=== PATIENT | female | born 1990 | race Caucasian/White ===

== ENCOUNTER 2025-06-25 20:18 | Inpatient (IN) | payer OTHER ==
[~2025-06-25 20:18] MED LIST: Iopamidol-370 76% 500 ML MDV (1 ML CHARGE) ONE
[2025-06-25 20:53] LABS: Bacteria/HPF None Seen HPF (None Seen); CAUTI Indications for Culture Pelvic or flank pain; Glucose, Urine (Dipstick) Normal (Negative); Leukocyte Negative Leu/uL (Negative); Protein, Urine (Dipstick) Negative (Neg-Trace); RBC/HPF 0-3 HPF (0-3); Specific Gravity, Urine 1.005 (1.002-1.036); WBC/HPF 0-3 HPF (0-3)
[2025-06-25 20:55] LABS: Urine Culture Reflex No No
[2025-06-25] MEDS ORDERED: Ondansetron PF 4 MG/2 ML Vial ONE ×2 (21:02→23:14)
[2025-06-25 21:28] LABS: #Basophils 0.03 10x3/uL (0.0-0.2); #Eosinophils 0.14 10x3/uL (0.0-0.7); #Monocytes 0.57 10x3/uL (0.11-0.59); #Neutrophils 5.10 10x3/uL (1.40-6.50); %Basophils 0.4 % (0.0-1.0); %Eosinophils 1.9 % (0.0-10.0); %Lymphocytes 20.0 % (21.0-51.0); %Monocytes 7.8 % (0.0-10.0); %Neutrophils 69.5 % (42.0-75.0); Hematocrit 38.1 % (36.0-47.0); Hemoglobin 12.6 g/dL (12.0-16.0); Mean Corpuscular Hemoglobin 30.7 pg (27.0-31.0); Mean Corpuscular Volume 92.7 fL (78.0-98.0); Platelet Count 277 10x3/uL (130-400); Red Blood Cell (RBC) Count 4.11 mill/uL (4.20-5.40); White Blood Cell (WBC) Count 7.34 10x3/uL (4.8-10.8)
[2025-06-25 21:37] LABS: BHCG - Serum Negative (NEGATIVE); Pregs Control Background? CLEAR/WHITE (CLR/WHITE); Pregs Control Bar Appear? YES (CONTROL BAR)
[2025-06-25 21:40] LABS: ALT (SGPT) 65 U/L (Less than 34); AST (SGOT) 122 U/L (11-34); Albumin 4.5 g/dL (3.1-4.5); Alkaline Phosphatase 147 U/L (40-110); Anion Gap 11 mmol/L (10-20); BUN (Urea Nitrogen) 8 mg/dL (7.0-18.7); Bilirubin, Total 0.7 mg/dL (0.3-1.2); Calc. Creatinine Clearance 0 mL/min (70-130); Calcium 9.6 mg/dL (7.8-10.44); Carbon Dioxide 23 mmol/L (22-29); Chloride 107 mmol/L (98-107); Globulin 3.1 g/dL (2.4-3.5); Glucose 99 mg/dL (70-105); Lipase 19 U/L (8-78); Potassium 4.0 mmol/L (3.5-5.1); Sodium 137 mmol/L (136-145)
[2025-06-26] MEDS ORDERED: hydrALAZINE 20 MG/ML VIAL SLOW IVP PRN (00:33)
[2025-06-26 01:54] VITALS: BMI 30.2
[2025-06-26] MEDS: Ondansetron PF 4 MG/2 ML Vial IVP PRN (05:33)
[2025-06-26 07:10] LABS: #Basophils 0.03 10x3/uL (0.0-0.2); #Eosinophils 0.14 10x3/uL (0.0-0.7); #Monocytes 0.49 10x3/uL (0.11-0.59); #Neutrophils 2.67 10x3/uL (1.40-6.50); %Basophils 0.6 % (0.0-1.0); %Eosinophils 3.0 % (0.0-10.0); %Lymphocytes 28.8 % (21.0-51.0); %Monocytes 10.4 % (0.0-10.0); %Neutrophils 57.0 % (42.0-75.0); Hematocrit 33.8 % (36.0-47.0); Hemoglobin 11.2 g/dL (12.0-16.0); Mean Corpuscular Hemoglobin 30.9 pg (27.0-31.0); Mean Corpuscular Volume 93.4 fL (78.0-98.0); Platelet Count 212 10x3/uL (130-400); Red Blood Cell (RBC) Count 3.62 mill/uL (4.20-5.40); White Blood Cell (WBC) Count 4.69 10x3/uL (4.8-10.8)
[2025-06-26 07:41] LABS: ALT (SGPT) 90 U/L (Less than 34); AST (SGOT) 96 U/L (11-34); Albumin 3.8 g/dL (3.1-4.5); Alkaline Phosphatase 122 U/L (40-110); Anion Gap 9 mmol/L (10-20); BUN (Urea Nitrogen) 6 mg/dL (7.0-18.7); Bilirubin, Total 1.0 mg/dL (0.3-1.2); Calc. Creatinine Clearance 117 mL/min (70-130); Calcium 8.8 mg/dL (7.8-10.44); Carbon Dioxide 24 mmol/L (22-29); Chloride 109 mmol/L (98-107); Globulin 2.6 g/dL (2.4-3.5); Glucose 92 mg/dL (70-105); Potassium 4.0 mmol/L (3.5-5.1); Sodium 138 mmol/L (136-145)
[2025-06-26] MEDS: FLU (Fluarix Triv) 25-26 (6MOS UP)/PF 45 MCG/0.5 ML Syringe IM ONE (09:13)
[2025-06-26] MEDS ORDERED: PROPOFOL 20 ML ONE (09:25)
[2025-06-26] MEDS ORDERED: fentaNYL PF 100 MCG/2 ML SYRINGE ONE ×3 (09:25→11:15)
[2025-06-26] MEDS ORDERED: Lidocaine 1% PF 5 ML VIAL ONE (09:27)
[2025-06-26] MEDS ORDERED: Rocuronium Bromide 10 MG/ML (10ML VIAL) ONE (09:27)
[2025-06-26] MEDS ORDERED: Ondansetron PF 4 MG/2 ML Vial ONE ×2 (09:27→11:18)
[2025-06-26] MEDS ORDERED: Bupivacaine 0.25% HCL 30 ML VIAL ONE (09:42)
[2025-06-26] MEDS ORDERED: SUCCINYLCHOLINE/SOD CL,ISO/PF 200 MG/10 ML SYRINGE FS ONE (09:58)
[2025-06-26] MEDS ORDERED: HYDROmorphone 0.5 MG/0.5 ML SYR SLOW IVP PRN (10:22)
[2025-06-26] MEDS ORDERED: SUGAMMADEX SODIUM 200 MG/2 ML VIAL ONE (10:34)
[2025-06-26] MEDS ORDERED: HYDROmorphone 0.5 MG/0.5 ML SYRINGE ONE (11:27)
[2025-06-26 14:30] VITALS: BMI 30.2
[2025-06-26] MEDS: Ketorolac Tromethamine 30 MG (1 mL) VIAL IVP PRN (17:30)
[2025-06-26] MEDS: Acetaminophen 325 MG TAB PO PRN (20:09)
[2025-06-27 06:39] LABS: #Basophils 0.03 10x3/uL (0.0-0.2); #Eosinophils 0.32 10x3/uL (0.0-0.7); #Monocytes 0.62 10x3/uL (0.11-0.59); #Neutrophils 6.49 10x3/uL (1.40-6.50); %Basophils 0.3 % (0.0-1.0); %Eosinophils 3.7 % (0.0-10.0); %Lymphocytes 13.0 % (21.0-51.0); %Monocytes 7.2 % (0.0-10.0); %Neutrophils 75.7 % (42.0-75.0); Hematocrit 38.3 % (36.0-47.0); Hemoglobin 12.7 g/dL (12.0-16.0); Mean Corpuscular Hemoglobin 31.1 pg (27.0-31.0); Mean Corpuscular Volume 93.9 fL (78.0-98.0); Platelet Count 271 10x3/uL (130-400); Red Blood Cell (RBC) Count 4.08 mill/uL (4.20-5.40); White Blood Cell (WBC) Count 8.59 10x3/uL (4.8-10.8)
[2025-06-27 07:00] LABS: ALT (SGPT) 177 U/L (Less than 34); AST (SGOT) 150 U/L (11-34); Albumin 4.3 g/dL (3.1-4.5); Alkaline Phosphatase 147 U/L (40-110); Anion Gap 15 mmol/L (10-20); BUN (Urea Nitrogen) 6 mg/dL (7.0-18.7); Bilirubin, Total 1.0 mg/dL (0.3-1.2); Calc. Creatinine Clearance 140 mL/min (70-130); Calcium 9.4 mg/dL (7.8-10.44); Carbon Dioxide 24 mmol/L (22-29); Chloride 104 mmol/L (98-107); Globulin 3.3 g/dL (2.4-3.5); Glucose 93 mg/dL (70-105); Potassium 3.4 mmol/L (3.5-5.1); Sodium 140 mmol/L (136-145)
[2025-06-27 12:10] VITALS: BP 118/79; TEMP 97.3
== END 2025-06-27 14:20 | disposition home or self-care (01) | DRG 419 ==
LOC: ERS 20:18 → SURG A 06-26 00:33
PROVIDERS: ADMIT Surgery; ATTEND Surgery
PROC: 0FT44ZZ Resection of Gallbladder, Percutaneous Endoscopic Approach (ICD-10-PCS; principal; 2025-06-26)
PROC: 8E0W4CZ Robotic Assisted Procedure of Trunk Region, Percutaneous Endoscopic Approach (ICD-10-PCS; 2025-06-26)
PROC: BF121ZZ Fluoroscopy of Gallbladder using Low Osmolar Contrast (ICD-10-PCS; 2025-06-26)
DX: K81.9 Cholecystitis, unspecified (principal); Z98.890 Other specified postprocedural states; Z79.899 Other long term (current) drug therapy
CPT/HCPCS: 36415; 74177; 76705; 80053; 81001; 83690; 84703; 85025; 88304; 96361; 96365; 96375; 96376; C1889; J0169; J0665; J1100; J1171; J1885; J2250; J2270; J2405; J2543; J2550; J2704; J7120; Q9967; S2900